=== PATIENT | female | born 1980 | race Caucasian/White ===

== ENCOUNTER 2018-10-10 12:43 | Emergency (ER) | payer SELFPAY ==
[~2018-10-10] VITALS: Ht 152.4 cm; Wt 54.4 kg
[2018-10-10 12:45] VITALS: BP_SYST 118
[2018-10-10] MEDS ORDERED: NACL 0.9% 1,000 ML IV ONE (12:59)
[2018-10-10] MEDS ORDERED: KETOROLAC TROMETHAMINE 30 MG VIAL IVP ONE (13:00)
[2018-10-10 13:42] LABS: EOSINOPHILS % (AUTO) 0.7 % (0.0-4.0); HEMATOCRIT 41.5 % (36-48); HEMOGLOBIN 13.4 g/dL (12.0-16.0); LYMPHOCYTES % (AUTO) 39.3 % (20.5-51.5); MEAN CORPUSCULAR HEMOGLOBIN 27 pg (27-31); MEAN CORPUSCULAR HGB CONC 32 % (32-36); MEAN CORPUSCULAR VOLUME 84 fL (79.0-98.0); MONOCYTES % (AUTO) 8.9 % (1.7-9.3); NEUTROPHILS % (AUTO) 50.7 % (40.0-70.0); PLATELET COUNT (AUTO) 386 K/uL (130-430); RED BLOOD CELL COUNT(AUTO) 4.92 MIL/uL (4.2-6.2); RED CELL DISTRIBUTION WIDTH 14.7 % (9.0-15.0); WHITE BLOOD COUNT (AUTO) 7.2 K/uL (4.8-10.8)
[2018-10-10 13:43] LABS: BASOPHILS % (AUTO) 0.4 % (0.0-2.0); LYMPHOCYTES # (AUTO) 2.8 K/uL (1.0-5.5); MONOCYTES # (AUTO) 0.6 K/uL (0.0-1.0); NEUTROPHILS # (AUTO) 3.6 K/uL (1.8-7.7)
[2018-10-10 13:49] LABS: CALCIUM 9.4 mg/dL (8.4-11.0); CREATININE 0.81 mg/dL (0.55-1.30); POTASSIUM 3.4 mmol/L (3.5-5.1)
[2018-10-10 13:53] LABS: PROTHROMBIN TIME 9.8 SECS (9.5-12.5)
[2018-10-10 13:54] LABS: ALBUMIN 3.8 g/dL (3.4-4.8); TOTAL BILIRUBIN 0.5 mg/dL (0.0-1.0)
[2018-10-10 15:39] LABS: CKMB RELATIVE INDEX 3.6 (0.0-2.9); CREATINE KINASE MB 8.2 ng/mL (0-3.6)
== END 2018-10-10 13:37 | disposition left against medical advice (07) ==
LOC: SED 12:43
DX: M54.5 Low back pain (principal); Z53.20 Procedure and treatment not carried out because of patient's decision for unspecified reasons
CPT/HCPCS: 36415; 80053; 82150-TC; 82550-TC; 82553-TC; 83690-TC; 84484; 85025; 85610-TC; 85730-TC; 99283